=== PATIENT | male | born 1940 | race Caucasian/White ===

== ENCOUNTER 2016-12-07 06:18 | Inpatient (IN) ==
[2016-12-07] MEDS ORDERED: Lidocaine -MPF 1% 2 ML VIAL ID ONE (06:47)
[2016-12-07] MEDS ORDERED: Albuterol 2.5 MG/3 ML NEBULIZER IH ONE (06:47)
[2016-12-07] MEDS ORDERED: CeFAZolin Pre 2,000 MG/100 ML 2,000 MG/100 ML BAG IVPB ONE (06:47)
[2016-12-07] MEDS ORDERED: Vancomycin 1,500 MG in D5% in Water 250 ML IVPB ONE ×3 (06:47→18:30)
[2016-12-07] MEDS ORDERED: Albuterol 2.5 MG/3 ML NEBULIZER ONE (06:50)
[2016-12-07] MEDS ORDERED: Ringers Solution, Lactated 1,000 ML IVC SCH (07:00)
[2016-12-07] MEDS ORDERED: *HR* Phenylephrine 10 MG/ML VIAL ONE (07:14)
[2016-12-07] MEDS ORDERED: *HR* Propofol 200 MG/20 ML VIAL IVP ONE (07:14)
[2016-12-07] MEDS ORDERED: Lidocaine -MPF 2% 2 ML VIAL ONE (07:14)
[2016-12-07] MEDS ORDERED: *HR* FentaNYL (PF) 100 MCG/2 ML VIAL ONE (07:14)
[2016-12-07] MEDS ORDERED: Lidocaine -MPF 4% 5 ML AMPUL ONE (07:14)
[2016-12-07] MEDS ORDERED: *HR* Midazolam HCl 2 MG/2 ML VIAL ONE (07:14)
[2016-12-07] MEDS ORDERED: *HR* Remifentanil 1 MG VIAL IVP ONE ×2 (07:15→07:16)
--- NOTE | 2016-12-07 07:17 | Anesthesia Evaluation PreOp ---
Date of Encounter: 12/07/16 Time of Encounter: 07:15 - Past History Planned Operation: R-CEA Cardiac History: HTN (maintained on Lisinopril, Metoprolol, Nifedipine), Hyperlipidemia (maintained on Simvastatin) Pulmonary History: Smoker (<1ppd x 50), COPD MONITORING TECH History: Denies Any Significant HX, Other (Carotid STenosis) Other Medical History: Denies Any Significant HX Anesthesia History: No Prior Anesthetic Complications, Past Anesthesia (NO priorGA) Alcohol Use: heavy, recent Drug use: none Medications and Allergies Aspirin [Lo-Dose Aspirin EC] 81 mg PO DAILY 12/07/16 [History] Calcium Carbonate [Calcium] 600 mg PO DAILY 12/07/16 [History] Calcium Carbonate/Vitamin D3 [Calcium 600-Vit D3 800 Tab] 1 tab PO DAILY [History] Fish Oil/Dha/Epa [Fish Oil 1,200 mg Fish Oil] 1 cap PO DAILY 12/07/16 [History] Lisinopril/Hydrochlorothiazide [Zestoretic 20-12.5 mg Tablet] 1 tab PO DAILY [History] Lycopene 10 mg PO DAILY 12/07/16 [History] Metoprolol [Lopressor] 25 mg PO BID 12/07/16 [History] Multivitamin [One Daily Multivitamin] 1 each PO DAILY 12/07/16 [History] NIFEdipine [Nifedipine ER] 30 mg PO DAILY 12/07/16 [History] Potassium Gluconate 99 mg PO DAILY 12/07/16 [History] Saw [place] [Saw [place]] 160 mg PO DAILY 12/07/16 [History] Simvastatin [Zocor] 40 mg PO HS 12/07/16 [History] 3 Allergy/AdvReac Type Severity Reaction Status Date / Time No Known Allergies Allergy Verified 12/07/16 07:07 - Meds/Allergy Pre-op Review Medications Reviewed: Yes Allergies Reviewed: Yes Beta Blockers on Current Med List: Yes (Metoprolol) If Beta Blockers taken, Date/Time (Last Dose taken): 12/07/2016 @ 1928 Anesthesia Results - Labs Laboratory Tests 12/06/16 12/06/16 12/06/16 16:42 16:42 16:42 WBC 7.7 Hgb 14.9 Hct 42.9 Plt Count 236 PT 10.5 INR 1.0 APTT 29.3 Sodium 139 Potassium 3.6 Chloride 101 Carbon Dioxide 29 Creatinine 1.21 Est GFR (Non-Af Amer) 58 L Anesthesia Exam O2 Sat Height 1.73 m Height 1.73 m Height 1.73 m Weight 95.708 kg Weight 95.708 kg Weight 95.708 kg O2 Sat by Pulse Oximetry 96 O2 Sat by Pulse Oximetry 96 Vital Signs Temp Pulse Resp BP Pulse Ox 97.9 F 60 18 132/74 96 12/07/16 06:41 12/07/16 06:41 12/07/16 06:41 12/07/16 06:41 12/07/16 06:41 Height: 5'10" Weight: 211# NPO (# of Hours): MNOc Pain Scale Used: Numeric (1 - 10) - HEENT Pupil (Motor): Pupils equal, EOMI Mallampati: II Teeth: Edentulous Oral Opening: Greater than 3 - MONITORING TECH LOC: Oriented MONITORING TECH Motor: Normal RUE, Normal LUE, Normal RLE, Normal LLE, Normal Face MONITORING TECH Sensory: Normal: RUE, LUE, RLE, LLE, Face - Cardiac Rhythm: Regular Murmur: None JVD: No - Pulmonary Breath Sounds: bilateral Clear Respiratory Effort: Symmetrical Anesthesia Assess/Plan ASA Score: 3 (HTN, Chol, smoker, Carotid Stenosis) Modified Imbler Scale for Level of Consciousness: Cooperative, oriented, and tranquil Anesthetic Plan: General Autologous Blood: Yes Monitoring Plan: A-Line Recovery Plan: PACU Anes Supervising Prov Stmt: Pt seen/evaluate, R&B Discussed, questions answered and consent obtained., Jameel Swan MD
[2016-12-07] MEDS ORDERED: Protamine Sulfate 50 MG/5 ML VIAL IVP ONE (07:20)
[2016-12-07] MEDS ORDERED: Bupivacaine-MPF 0.25% 10 ML VIAL ONE (07:20)
[2016-12-07] MEDS ORDERED: Heparin 1,000 UNITS/500 mL NS 1,500 ML ONE (07:21)
[2016-12-07] MEDS ORDERED: *HR* Succinylcholine 200 MG/10 ML VIAL IVP ONE (07:25)
[2016-12-07] MEDS ORDERED: Heparin 1,000 UNITS/500 mL NS 500 ML ONE (07:27)
[2016-12-07] MEDS ORDERED: *HR* Labetalol 20 MG/4 ML SYRINGE IVP PRN ×2 (07:31→12:57)
[2016-12-07] MEDS ORDERED: *HR* Promethazine 25 MG/ML VIAL IVP PRN (07:31)
[2016-12-07] MEDS ORDERED: *HR* HYDROmorphone (PF) 1 MG/ML SYRINGE IVP PRN (07:31)
[2016-12-07] MEDS ORDERED: Acetaminophen IV 1,000 MG/100 ML INFUS..BTL IVPB ONE (07:31)
--- NOTE | 2016-12-07 07:32 | History & Physical Report ---
Date of Encounter: 12/07/16 Time of Encounter: 07:28 24 Hour HP Update - Instructions Instructions: If the History and Physical is less than 30 days old and was completed prior to A.M. admission and or procedure and has NOT been updated on calendar day of procedure please complete this update prior to performing procedure. - Update Patient reports changes in Medical Condition: No Changes in examination, assessment, or condition: No Changes in Medication: No Preop tests/diagnostics Reviewed: Yes Surgery Remains Indicated: Yes Consent for Planned Operative Procedure(s) Verified: Yes - Pre-Operative Checklist Preoperative Checklist Indicated: Yes Prophylactic Antibiotic Ordered: Yes (vancomycin due to MRSA risk.) Home Medications Include Beta Brandan: Yes Beta Brandan Taken Today (Day of Surgery): Yes Beta Brandan Taken Yesterday (Day Prior to Surgery): Yes Is VTE Prophylaxis Indicated?: Yes
[2016-12-07] MEDS ORDERED: *HR* Heparin 5,000 UNIT/ML VIAL ONE (09:40)
[2016-12-07] MEDS ORDERED: *HR* Metoprolol 5 MG/5 ML VIAL IVP ONE (10:40)
--- NOTE | 2016-12-07 11:11 | Operative Note ---
Date of procedure: 12/07/16 Pre-op diagnosis: 80-99% Right internal carotid artery stenosis Post-op diagnosis: same Procedure: Right carotid endarterectomy with hemashield patch angioplasty. Complications: None Anesthesia: PERFECTOA Surgeon: Ryan Burrell Estimated blood loss (cc): 100 Specimen: Right carotid plaque Condition: stable Disposition: PACU Procedure in Detail: indications: The patient is a 76 year old male with a history of hyperlipidemia and hypertension. He was found to have an 80-99% right internal carotid artery stenosis by carotid duplex. A right carotid endarterectomy was recommended to reduce his risk of stroke. Procedure: The patient was identified in the preoperative area. The risks, benefits, and alternatives of the procedure were discussed and all questions were answered. The patient was then taken to the operating room and placed in supine position on the operating table. After induction of general endotracheal anesthesia, the patient was cleaned and draped in normal sterile fashion. A longitudinal incision was made anterior to the right sternocleidomastoid muscle. Hemostasis was obtained via electrocautery. Through a process of blunt , sharp, and electrocautery dissection, the platysma was traversed. The jugular vein was identified. The facial vein was clamped, divided, tied off with a 2-0 silk suture ligature. The jugular vein was retracted, exposing the carotid bifurcation. The patient received 3000 units of heparin intravenously at this time. Proximal dissection of the common and external carotid arteries were performed circumferentially. Dissection of the internal carotid was performed circumferentially. Vessels loops were passed around the internal and external carotid and an umbilical tape was passed from the common carotid artery. The patient received additional 2000 units of heparin intravenously. Additional heparin was given throughout the case to maintain adequate anticoagulation. After waiting adequate time for the heparin to circulate, the vessels were occluded and a longitudinal arteriotomy was made into the common carotid artery extending into the internal carotid beyond the plaque. The internal carotid artery loop was released and brisk pulsatile retrograde flow was apparent. Therfore, no shunt was placed. A dental Jayess was used to perform a standard endarterectomy. Proximal and distal endpoints were inspected. No elevated flaps were noted. Additional heparin was given throughout the procedure to maintain adequate anticoagulation. A Hemashield patch was cut to fit the defect and sutured in place with running 6 -0 Prolene. Prior to completing the closure, each vessel was flushed and then reoccluded. Heparinized saline was infused into the lumen. The patch was completed. Flow was restored in the external carotid artery, followed the common carotid artery, lastly the internal carotid artery was opened. A low resistance arterialized signal was present within the internal carotid artery beyond the patch. Thrombin and Gelfoam were used to aid in hemostasis. Meticulous hemostasis was obtained throughout the wound with electrocautery. Platelet rich and platelet poor plasma were infused into the wounds. The sternocleidomastoid was reapproximated with interrupted 3-0 Vicryl. Platelet rich and platelet poor plasma were infused into the wound. A TLS drain was brought through a separate stab incision and sutured in place with 0 silk suture. The platysma was reapproximated with running 3-0 Vicryl. Local anesthetic was infused in the skin. A 3-0 Monocryl was used to reapproximate the skin. Sterile dressing was applied. The patient was extubated, taken to the recovery room in stable condition.
--- NOTE | 2016-12-07 11:40 | Anesthesia Evaluation Post Op ---
Date of Encounter: 12/07/16 Time of Encounter: 11:39 - Vital Signs Vital Signs: Vital Signs/O2 Sat, Most Current Temp Pulse Resp BP Pulse Ox 97.8 F 61 16 120/71 100 12/07/16 11:25 12/07/16 11:25 12/07/16 11:25 12/07/16 11:12/07/16 11:25 - Lungs Lungs: Clear Ascult./Percussion - Airway Airway: Non-obstructed - Cardiovascular Regular Rate - Mental Status Mental Status: Alert & Oriented, Answers Appropriately - Pain Pain Scale: 0 Pain Scale used: Numeric (1 - 10) - Nausea Vomiting Nausea Vomiting: Not Present - Hydration Hydration: Ice chips - Discharge PostOp Status: Transfer Patient to floor
[2016-12-07] MEDS ORDERED: Naloxone 0.4 MG/ML INJ IVP PRN (12:57)
[2016-12-07] MEDS ORDERED: Ondansetron 4 MG/2 ML VIAL IVP PRN (12:57)
[2016-12-07] MEDS ORDERED: *HR* HYDROcodone/Acet 5/325 mg TABLET PO PRN (12:57)
[2016-12-07] MEDS ORDERED: *HR* Morphine 2 MG/ML SYRINGE IVP PRN (12:57)
[2016-12-07] MEDS ORDERED: Acetaminophen 325 MG TABLET PO PRN (12:57)
[2016-12-07] MEDS ORDERED: *HR* OxyCODONE Immed Rel 5 MG TABLET PO PRN (12:57)
[2016-12-07] MEDS: *HR* Metoprolol 5 MG/5 ML VIAL IVP SCH ×2 (13:47→18:11)
[2016-12-07] MEDS ORDERED: ceFAZolin 2,000 MG in D5% in Water 100 ML IVPB SCH (14:30)
[2016-12-07] MEDS: ceFAZolin 2,000 MG in D5% in Water 100 ML IVPB SCH ×2 (14:43→21:40)
[2016-12-07] MEDS ORDERED: *HR* Heparin 5,000 UNIT/ML VIAL SQ SCH (18:00)
[2016-12-07] MEDS ORDERED: Vancomycin 0 MG in D5% in Water 250 ML IVPB ONE (18:30)
[2016-12-08] MEDS: *HR* Metoprolol 5 MG/5 ML VIAL IVP SCH ×2 (00:14→06:38)
[2016-12-08] MEDS ORDERED: *HR* Heparin 5,000 UNIT/ML VIAL SQ SCH (06:00)
--- NOTE | 2016-12-08 06:37 | Discharge Summary ---
Date of Encounter: 12/08/16 Time of Encounter: 11:50 - Discharge Diagnosis (1) Carotid stenosis, bilateral Priority: Primary Status: Chronic Comments: The patient is postoperative day #1 after a right carotid endarterectomy. He is alert and comfortable. He has no neurologic deficits. His incision is healing. He has no hematoma. He will be discharged today. (2) Essential hypertension Priority: Secondary Status: Chronic (3) Mixed hyperlipidemia Priority: Secondary Status: Chronic (4) Tobacco abuse Priority: Secondary Status: Chronic - Discharge Medications Prescriptions: HYDROcodone/Acet 5/325 mg [[place] 5-325 mg] 1 tab PO Q4H PRN #25 tab PRN Reason: postoperative pain Home Medications: Aspirin [Lo-Dose Aspirin EC] 81 mg PO DAILY 12/07/16 [History] Calcium Carbonate [Calcium] 600 mg PO DAILY 12/07/16 [History] Calcium Carbonate/Vitamin D3 [Calcium 600-Vit D3 800 Tab] 1 tab PO DAILY [History] Fish Oil/Dha/Epa [Fish Oil 1,200 mg Fish Oil] 1 cap PO DAILY 12/07/16 [History] Lisinopril/Hydrochlorothiazide [Zestoretic 20-12.5 mg Tablet] 1 tab PO DAILY [History] Lycopene 10 mg PO DAILY 12/07/16 [History] Metoprolol [Lopressor] 25 mg PO BID 12/07/16 [History] Multivitamin [One Daily Multivitamin] 1 each PO DAILY 12/07/16 [History] NIFEdipine [Nifedipine ER] 30 mg PO DAILY 12/07/16 [History] Potassium Gluconate 99 mg PO DAILY 12/07/16 [History] Saw [place] 160 mg PO DAILY 12/07/16 [History] Simvastatin [Zocor] 40 mg PO HS 12/07/16 [History] HYDROcodone/Acet 5/325 mg [[place] 5-325 mg] 1 tab PO Q4H PRN #25 tab 12/08/16 [Rx ] Allergies/Adverse Reactions: 3 Allergy/AdvReac Type Severity Reaction Status Date / Time No Known Allergies Allergy Verified 12/07/16 07:07 Procedures/tests Complete & Pending: Procedures Performed prior 72 hours Category Date Time Status ECG 12 lead ECG [ECG] Routine Y 12/07/16 07:39 Completed Date of admission: 12/07/16 11:34 Primary care physician: Kemi Marquis DO Procedure(s) Performed: Right carotid endarterectomy Discharging clinician: Ryan Burrell Anticipated date of discharge: 12/08/16 - Patient Status Disposition: Home, Self-Care Condition: Good Functional capacity at discharge: independent ambulation Overall status at discharge: patient is back to baseline - Discharge Instructions Instructions: Peripheral Vascular Disorders (DC), Surgical Site Infections (GEN ) Follow Up With: Ryan Burrell MD [Partnered Physician] - 01/22/17 11:00 am Neeru Manning CNP [Advanced Practice Nurse] - 12/14/16 1:45 pm Additional Instructions: May remove bandage and shower 12/09/16. Wash wound gently and pat to dry. No driving for [address] Burrell at [phone] with questions or concerns. - Diet and Activity Activity: increase activity as tolerated Diet: advance to your usual diet - Hospital Course Hospital course: Mr. Marrero is a 76 year old male with a history of hypertension and hyperlipidemia. He underwent a right carotid endarterectomy on 12/07/16. He tolerated the procedure well. He will be discharged today without complications. Time spent discussing smoking cessation with patient: 3 to 10 minutes - Time Spent with Patient Total time spent providing and/or coordinating discharge services: Exam Vital Signs, Last 4 Hours Temp Pulse Resp BP Pulse Ox 12/08/16 03:48 98.1 F 67 19 116/65 93 General: Present: Conversant, No Apparent Distress HEENT: Present: Trachea midline, Pupils equal Neck: Present: Other (incision clean, dry and intact without erythema or drainage, no hematoma). Absent: Tracheal deviation Cardiac: Present: Reg Rate and Rhythm Lungs: Present: Normal Breath Sounds Neuro: Present: Alert and responsive, No focal deficits noted, Motor nerves grossly intact, Sensory nerves grossly intact Vascular: Present: Normal capillary refill. Absent: Edema Skin: Present: No rashes noted on visualized skin - VTE Documentation of Mechanical Device: Intermittent pneumatic compression device
[2016-12-08] MEDS ORDERED: CALCIUM CARBONATE PO SCH (09:00)
[2016-12-08] MEDS ORDERED: NIFEdipine XL (24 HR) 30 MG TAB.ER.24 PO SCH (09:00)
[2016-12-08] MEDS ORDERED: Aspirin Enteric Coated 81 MG Tablet PO SCH (09:00)
[2016-12-08] MEDS ORDERED: Lisinopril-HCTZ 20-12.5mg TABLET PO SCH (09:00)
[2016-12-08] MEDS ORDERED: (Potassium Gluconate [Potassium Gluconate] 99 MG) PO SCH (09:00)
[2016-12-08] MEDS ORDERED: VITAMIN D3 PO SCH (09:00)
[2016-12-08] MEDS ORDERED: Multivit/Ca/Min/Fe/FA 1 TAB TABLET PO SCH (09:00)
[2016-12-08 10:55] VITALS: BP 122/58
--- NOTE | 2016-12-11 20:49 | Electrocardiograph Report ---
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
== END 2016-12-08 13:32 | disposition home or self-care (01) | DRG 39 ==
LOC: SAMDAY 06:18 → 2NNU 11:34
PROVIDERS: ADMIT Surgery; ATTEND Surgery

== ENCOUNTER 2020-05-09 11:01 | Inpatient (IN) ==
[2020-05-09] MEDS ORDERED: *HR* FentaNYL (PF) 100 MCG/2 ML VIAL IVP ONE (11:31)
[2020-05-09 11:58] LABS: Hematocrit 42.1 % (37.5-50.1); Hemoglobin 14.1 g/dL (12.9-16.9); Mean Corpuscular HGB Conc 33.5 g/dL (31.6-35.5); Mean Corpuscular Hemoglobin 31.1 pg (28.0-33.3); Mean Corpuscular Volume 92.7 fL (83.0-100.0); Mean Platelet Volume 9.4 fL (9.4-12.4); Platelet Count 233 K/mcL (140-400); Red Blood Count 4.54 M/mcL (4.19-5.50); Red Cell Distribution Width 14.5 % (11.5-14.5); White Blood Count 16.2 K/mcL (4.3-11.1)
[2020-05-09 12:03] LABS: INR 1.3; Prothrombin Time 14.6 Seconds (9.4-12.1)
[2020-05-09 12:06] LABS: Activated Partial Thrombo Time 25.3 Seconds (26.0-36.0)
[2020-05-09 12:15] LABS: Lymphocytes # 1.3 K/mcL (0.6-4.6); Monocytes # 0.3 K/mcL (0.0-1.3); Neutrophils # 14.6 K/mcL (1.6-8.9); Platelet Estimate Normal (Normal)
[2020-05-09] MEDS ORDERED: 0.9 % Sodium Chloride 1,000 ML IV ONE (12:15)
[2020-05-09 12:20] LABS: Albumin 3.8 g/dL (3.5-5.7); Albumin/Globulin Ratio 1.4 (1.1-2.2); Bilirubin,Total 2.8 mg/dL (0.3-1.0); Calcium 9.8 mg/dL (8.6-10.3); Globulin 2.7 g/dL (2.4-3.5); Potassium 4.2 mEq/L (3.5-5.1); Total Protein 6.5 g/dL (6.4-8.9)
[2020-05-09] MEDS ORDERED: Piperacillin/Tazobactam 3.375 GM in 0.9 % Sodium Chloride Mini Bag 100 ML IVPB ONE (12:29)
[2020-05-09] MEDS ORDERED: *HR* Enoxaparin 100 MG/ML SYRINGE SQ STA (12:59)
[2020-05-09] MEDS ORDERED: *HR* OxyCODONE Immed Rel 5 MG TABLET PO PRN (13:42)
[2020-05-09] MEDS ORDERED: Mag Hydrox/Al Hydrox/Simeth 30 ML UDC PO PRN (13:42)
[2020-05-09] MEDS ORDERED: Naloxone 0.4 MG/ML INJ IVP PRN (13:42)
[2020-05-09] MEDS ORDERED: Ondansetron ODT 4 MG TAB.RAPDIS SL PRN (13:42)
[2020-05-09] MEDS: 0.9 % Sodium Chloride 1,000 ML IVC SCH (15:23)
[2020-05-09 15:47] LABS: Bilirubin,Urine Negative (Negative); Blood,Urine Moderate (Negative); Clarity,Urine Clear (Clear); Color,Urine Yellow (Yellow); Glucose,Urine (UA) Normal (Normal); Ketones,Urine Negative (Negative); Leukocyte Esterase,Urine Negative (Negative); Nitrite,Urine Negative (Negative); Protein,Urine 30 mg/dL (Neg-Trace); Specific Gravity,Urine > 1.030 (1.010-1.025); Squamous Epithelial Cell,Urine Few per hpf (None-Few); Urobilinogen,Urine Normal (Normal)
[2020-05-09] MEDS: Piperacillin/Tazobactam 3.375 GM in 0.9 % Sodium Chloride Mini Bag 100 ML IVPB SCH (20:28)
[2020-05-09] MEDS: Acetaminophen 325 MG TABLET PO PRN (23:58)
[2020-05-10] MEDS: 0.9 % Sodium Chloride 1,000 ML IVC SCH (01:42)
[2020-05-10] MEDS ORDERED: Melatonin 3 MG TABLET PO ONE (01:48)
[2020-05-10 02:38] LABS: INR 1.4; Prothrombin Time 16.3 Seconds (9.4-12.1)
[2020-05-10 02:39] LABS: Basophils % 0.1 %; Hematocrit 36.1 % (37.5-50.1); Immature Granulocytes % 0.7 % (0-4); Lymphocytes # 1.1 K/mcL (0.6-4.6); Lymphocytes % 7.9 %; Mean Corpuscular HGB Conc 33.8 g/dL (31.6-35.5); Mean Corpuscular Hemoglobin 31.4 pg (28.0-33.3); Mean Corpuscular Volume 92.8 fL (83.0-100.0); Mean Platelet Volume 9.8 fL (9.4-12.4); Monocytes # 0.5 K/mcL (0.0-1.3); Monocytes % 3.8 %; Platelet Count 202 K/mcL (140-400); Red Blood Count 3.89 M/mcL (4.19-5.50); Red Cell Distribution Width 14.6 % (11.5-14.5); Segmented Neutrophils % 87.5 %; White Blood Count 13.7 K/mcL (4.3-11.1)
[2020-05-10 02:44] LABS: Hemoglobin 12.2 g/dL (12.9-16.9)
[2020-05-10 02:50] LABS: Calcium 8.5 mg/dL (8.6-10.3); Potassium 3.3 mEq/L (3.5-5.1)
[2020-05-10] MEDS: Acetaminophen 325 MG TABLET PO PRN ×2 (05:55→17:37)
[2020-05-10] MEDS: Piperacillin/Tazobactam 3.375 GM in 0.9 % Sodium Chloride Mini Bag 100 ML IVPB SCH ×3 (05:56→20:18)
[2020-05-10] MEDS ORDERED: *HR* Enoxaparin 100 MG/ML SYRINGE SQ SCH (06:00)
[2020-05-10 08:37] LABS: Magnesium 1.5 mg/dL (1.6-2.6); Phosphorous 2.1 mg/dL (2.7-4.5)
[2020-05-10] MEDS: Aspirin Enteric Coated 81 MG Tablet PO SCH (08:38)
[2020-05-10] MEDS: NIFEdipine XL (24 HR) 30 MG TAB.ER.24 PO SCH (08:38)
[2020-05-10] MEDS ORDERED: Potassium Phosphate 44 MEQ in 0.9 % Sodium Chloride 250 ML IVPB ONE (13:12)
[2020-05-10] MEDS ORDERED: Perflutren Lipid Microsphere 1.3 ML in 0.9 % Sodium Chloride 8.7 ML IVP PRN (13:16)
[2020-05-10] MEDS: Apixaban 5 MG TABLET PO SCH (20:18)
[2020-05-11] MEDS ORDERED: Melatonin 3 MG TABLET PO ONE (00:17)
[2020-05-11 04:31] LABS: Basophils % 0.2 %; Hematocrit 36.3 % (37.5-50.1); Hemoglobin 12.3 g/dL (12.9-16.9); Immature Granulocytes % 2.5 % (0-4); Lymphocytes # 0.9 K/mcL (0.6-4.6); Lymphocytes % 5.9 %; Mean Corpuscular HGB Conc 33.9 g/dL (31.6-35.5); Mean Corpuscular Hemoglobin 30.9 pg (28.0-33.3); Mean Corpuscular Volume 91.2 fL (83.0-100.0); Mean Platelet Volume 9.7 fL (9.4-12.4); Monocytes # 0.5 K/mcL (0.0-1.3); Monocytes % 3.4 %; Neutrophils # 13.4 K/mcL (1.6-8.9); Platelet Count 201 K/mcL (140-400); Red Blood Count 3.98 M/mcL (4.19-5.50); Red Cell Distribution Width 14.6 % (11.5-14.5); White Blood Count 15.2 K/mcL (4.3-11.1)
[2020-05-11 04:56] LABS: BUN/Creatinine Ratio 21 (6-26); Blood Urea Nitrogen 26 mg/dL (8-23); Calcium 8.2 mg/dL (8.6-10.3); Carbon Dioxide 24 mEq/L (23-29); Chloride 103 mEq/L (98-107); Glucose 141 mg/dL (70-105); Magnesium 2.3 mg/dL (1.6-2.6); Osmolality,Calculated 289 (280-300); Phosphorous 1.8 mg/dL (2.7-4.5); Potassium 3.1 mEq/L (3.5-5.1); Sodium 136 mEq/L (136-145); eGFR For African Americans > 60 (> 60); eGFR For Non-African Americans 57 (> 60)
[2020-05-11] MEDS: Piperacillin/Tazobactam 3.375 GM in 0.9 % Sodium Chloride Mini Bag 100 ML IVPB SCH ×3 (05:23→21:20)
[2020-05-11] MEDS ORDERED: VITAMIN D3 PO SCH (09:00)
[2020-05-11] MEDS ORDERED: [UNRECOGNIZED DRUG - OTHER] PO SCH (09:00)
[2020-05-11] MEDS ORDERED: CALCIUM CARBONATE PO SCH (09:00)
[2020-05-11] MEDS: Apixaban 5 MG TABLET PO SCH ×2 (09:14→21:20)
[2020-05-11] MEDS: NIFEdipine XL (24 HR) 30 MG TAB.ER.24 PO SCH (09:14)
[2020-05-11] MEDS: Aspirin Enteric Coated 81 MG Tablet PO SCH (09:14)
[2020-05-11] MEDS: Cholecalciferol (D-3) 1,000 UNIT (25MCG) TABLET PO SCH (09:14)
[2020-05-11 12:54] LABS: Adenovirus Not Detected (Not Detect); Bordetella Pertussis Not Detected (Not Detect); Chlamydophila pneumoniae Not Detected (Not Detect); Coronavirus 229E Not Detected (Not Detect); Coronavirus HKU1 Not Detected (Not Detect); Coronavirus NL63 Not Detected (Not Detect); Coronavirus OC43 Not Detected (Not Detect); Human Metapneumovirus Not Detected (Not Detect); Human Rhinovirus/Enterovirus Not Detected (Not Detect); Influenza A Subtype 2009 H1 Not Detected (Not Detect); Influenza B Not Detected (Not Detect); Mycoplasma pneumoniae Not Detected (Not Detect); Parainfluenza Virus 1 Not Detected (Not Detect); Parainfluenza Virus 2 Not Detected (Not Detect); Parainfluenza Virus 3 Not Detected (Not Detect); Parainfluenza Virus 4 Not Detected (Not Detect); Respiratory Syncytial Virus Not Detected (Not Detect); SARS-CoV-2 Not Detected (Not Detect)
[2020-05-11] MEDS ORDERED: Isovue-370 500 ML BOTTLE IVP ONE (17:56)
[2020-05-11] MEDS ORDERED: 0.9 % Sodium Chloride 1,000 ML IVC SCH ×2 (18:00→18:14)
[2020-05-11] MEDS: methylPREDNISolone 125 MG/2 ML VIAL IVP SCH (18:04)
[2020-05-11 18:14] LABS: ABG Base Excess 1 mEq/L (-2 to 3); ABG HCO3 25 mEq/L (21-27); ABG Oxygen Saturation 94 % (95-98); ABG PCO2 37 mmHg (35-45); ABG PH 7.44 pH Units (7.32-7.45); ABG PO2 67 mmHg (85-104); ABG TCO2 26 mEq/L (20-26)
[2020-05-11] MEDS: Ipratropium/Albuterol Neb 3 ML IH SCH ×2 (19:45→23:33)
[2020-05-11] MEDS: Acetaminophen 325 MG TABLET PO PRN (21:19)
[2020-05-11] MEDS: Melatonin 3 MG TABLET PO PRN (22:01)
[2020-05-11] MEDS ORDERED: 0.9 % Sodium Chloride 1,000 ML ONE (23:33)
[2020-05-12 01:50] LABS: Basophils % 0.2 %; Eosinophils % 0.2 %; Hematocrit 35.9 % (37.5-50.1); Immature Granulocytes % 0.6 % (0-4); Lymphocytes # 0.6 K/mcL (0.6-4.6); Lymphocytes % 3.9 %; Mean Corpuscular HGB Conc 33.4 g/dL (31.6-35.5); Mean Corpuscular Hemoglobin 30.9 pg (28.0-33.3); Mean Corpuscular Volume 92.5 fL (83.0-100.0); Mean Platelet Volume 9.7 fL (9.4-12.4); Monocytes # 0.3 K/mcL (0.0-1.3); Neutrophils # 15.2 K/mcL (1.6-8.9); Platelet Count 232 K/mcL (140-400); Red Blood Count 3.88 M/mcL (4.19-5.50); Red Cell Distribution Width 14.7 % (11.5-14.5); Segmented Neutrophils % 93.1 %; White Blood Count 16.4 K/mcL (4.3-11.1)
[2020-05-12 02:02] LABS: BUN/Creatinine Ratio 24 (6-26); Blood Urea Nitrogen 27 mg/dL (8-23); Carbon Dioxide 24 mEq/L (23-29); Chloride 102 mEq/L (98-107); Glucose 188 mg/dL (70-105); Magnesium 2.6 mg/dL (1.6-2.6); Osmolality,Calculated 290 (280-300); Potassium 3.7 mEq/L (3.5-5.1); Sodium 135 mEq/L (136-145); eGFR For African Americans > 60 (> 60); eGFR For Non-African Americans > 60 (> 60)
[2020-05-12] MEDS: Ipratropium/Albuterol Neb 3 ML IH SCH ×7 (03:44→23:25)
[2020-05-12] MEDS: Piperacillin/Tazobactam 3.375 GM in 0.9 % Sodium Chloride Mini Bag 100 ML IVPB SCH ×3 (06:22→20:03)
[2020-05-12] MEDS: methylPREDNISolone 125 MG/2 ML VIAL IVP SCH (06:23)
[2020-05-12] MEDS: Apixaban 5 MG TABLET PO SCH ×2 (07:31→20:03)
[2020-05-12] MEDS: Aspirin Enteric Coated 81 MG Tablet PO SCH (07:31)
[2020-05-12] MEDS: Cholecalciferol (D-3) 1,000 UNIT (25MCG) TABLET PO SCH (07:31)
[2020-05-12] MEDS: NIFEdipine XL (24 HR) 30 MG TAB.ER.24 PO SCH (07:31)
[2020-05-12] MEDS: Furosemide 20 MG/2 ML VIAL IVP SCH ×2 (08:37→20:02)
[2020-05-12] MEDS ORDERED: GuaiFENesin/Dextromethorphan TABLET PO PRN (13:33)
[2020-05-12] MEDS: Doxycycline 100 MG in 0.9 % Sodium Chloride Mini Bag 100 ML IVPB SCH (17:15)
[2020-05-12] MEDS ORDERED: *HR* Metoprolol 5 MG/5 ML VIAL IVP ONE ×2 (19:28→22:49)
[2020-05-12] MEDS: Melatonin 3 MG TABLET PO PRN (20:44)
[2020-05-13] MEDS: Ipratropium/Albuterol Neb 3 ML IH SCH ×6 (04:05→23:28)
[2020-05-13] MEDS: Doxycycline 100 MG in 0.9 % Sodium Chloride Mini Bag 100 ML IVPB SCH ×2 (05:10→18:17)
[2020-05-13 05:13] LABS: Basophils % 0.1 %; Eosinophils % 0.1 %; Hematocrit 33.8 % (37.5-50.1); Hemoglobin 11.5 g/dL (12.9-16.9); Immature Granulocytes % 1.5 % (0-4); Lymphocytes % 6.1 %; Mean Corpuscular Hemoglobin 31.3 pg (28.0-33.3); Mean Corpuscular Volume 92.1 fL (83.0-100.0); Mean Platelet Volume 9.7 fL (9.4-12.4); Monocytes # 0.7 K/mcL (0.0-1.3); Monocytes % 4.6 %; Platelet Count 288 K/mcL (140-400); Red Blood Count 3.67 M/mcL (4.19-5.50); Red Cell Distribution Width 14.8 % (11.5-14.5); Segmented Neutrophils % 87.6 %
[2020-05-13 05:23] LABS: Calcium 7.8 mg/dL (8.6-10.3); Magnesium 2.5 mg/dL (1.6-2.6); Phosphorous 1.8 mg/dL (2.7-4.5)
[2020-05-13 05:24] LABS: C-Reactive Protein 146 mg/L (Less than 10); Creatine Kinase 149 Units/L (30-223)
[2020-05-13] MEDS: Piperacillin/Tazobactam 3.375 GM in 0.9 % Sodium Chloride Mini Bag 100 ML IVPB SCH ×3 (06:47→21:08)
[2020-05-13] MEDS: Furosemide 20 MG/2 ML VIAL IVP SCH (08:56)
[2020-05-13] MEDS: Cholecalciferol (D-3) 1,000 UNIT (25MCG) TABLET PO SCH (08:57)
[2020-05-13] MEDS: Apixaban 5 MG TABLET PO SCH ×2 (08:57→21:08)
[2020-05-13] MEDS: predniSONE 20 MG TABLET PO SCH (08:57)
[2020-05-13] MEDS: NIFEdipine XL (24 HR) 30 MG TAB.ER.24 PO SCH (08:57)
[2020-05-13] MEDS: Aspirin Enteric Coated 81 MG Tablet PO SCH (08:57)
[2020-05-13] MEDS: Melatonin 3 MG TABLET PO PRN (21:08)
[2020-05-14] MEDS: Ipratropium/Albuterol Neb 3 ML IH SCH ×4 (03:34→15:22)
[2020-05-14] MEDS: Doxycycline 100 MG in 0.9 % Sodium Chloride Mini Bag 100 ML IVPB SCH (05:15)
[2020-05-14] MEDS: Piperacillin/Tazobactam 3.375 GM in 0.9 % Sodium Chloride Mini Bag 100 ML IVPB SCH (05:15)
[2020-05-14 06:24] LABS: Basophils % 0.3 %; Eosinophils % 0.2 %; Hematocrit 33.7 % (37.5-50.1); Hemoglobin 11.4 g/dL (12.9-16.9); Immature Granulocytes % 5.1 % (0-4); Mean Corpuscular HGB Conc 33.8 g/dL (31.6-35.5); Mean Corpuscular Hemoglobin 30.9 pg (28.0-33.3); Mean Corpuscular Volume 91.3 fL (83.0-100.0); Mean Platelet Volume 9.4 fL (9.4-12.4); Monocytes # 0.6 K/mcL (0.0-1.3); Neutrophils # 7.6 K/mcL (1.6-8.9); Platelet Count 351 K/mcL (140-400); Red Blood Count 3.69 M/mcL (4.19-5.50); Red Cell Distribution Width 14.9 % (11.5-14.5); Segmented Neutrophils % 78.4 %; White Blood Count 9.7 K/mcL (4.3-11.1)
[2020-05-14 06:39] LABS: BUN/Creatinine Ratio 28 (6-26); Blood Urea Nitrogen 32 mg/dL (8-23); Calcium 7.9 mg/dL (8.6-10.3); Carbon Dioxide 25 mEq/L (23-29); Chloride 108 mEq/L (98-107); Glucose 112 mg/dL (70-105); Magnesium 2.5 mg/dL (1.6-2.6); Osmolality,Calculated 302 (280-300); Phosphorous 1.7 mg/dL (2.7-4.5); Potassium 3.2 mEq/L (3.5-5.1); Sodium 142 mEq/L (136-145); eGFR For African Americans > 60 (> 60); eGFR For Non-African Americans > 60 (> 60)
[2020-05-14] MEDS: predniSONE 20 MG TABLET PO SCH (09:24)
[2020-05-14] MEDS: NIFEdipine XL (24 HR) 30 MG TAB.ER.24 PO SCH (09:25)
[2020-05-14] MEDS: Cholecalciferol (D-3) 1,000 UNIT (25MCG) TABLET PO SCH (09:25)
[2020-05-14] MEDS: Apixaban 5 MG TABLET PO SCH (09:25)
[2020-05-14] MEDS: Aspirin Enteric Coated 81 MG Tablet PO SCH (09:25)
[2020-05-14 11:29] VITALS: BP 141/55
== END 2020-05-14 16:36 | disposition home or self-care (01) | DRG 871 ==
LOC: EMEROOARM 11:01 → 3ANU 11:01 → SUATTDRO 13:30 → 3ANU 14:21 → 2NNU 05-11 18:21 → 3ANU 05-12 18:12
PROVIDERS: ADMIT Family Medicine; ATTEND Internal Medicine

== ENCOUNTER 2020-05-21 16:00 | Observation (INO) ==
[2020-05-21] MEDS ORDERED: Naloxone 0.4 MG/ML INJ IVP PRN (19:29)
[2020-05-21] MEDS ORDERED: Ondansetron 4 MG/2 ML VIAL IVP PRN (19:29)
[2020-05-21 20:10] LABS: Basophils # 0.1 K/mcL (0.0-0.2); Basophils % 0.4 %; Eosinophils # 0.2 K/mcL (0.0-0.6); Eosinophils % 1.3 %; Hematocrit 36.9 % (37.5-50.1); Hemoglobin 12.2 g/dL (12.9-16.9); Immature Granulocytes % 1.4 % (0-4); Mean Corpuscular HGB Conc 33.1 g/dL (31.6-35.5); Mean Corpuscular Hemoglobin 30.6 pg (28.0-33.3); Mean Corpuscular Volume 92.5 fL (83.0-100.0); Mean Platelet Volume 8.9 fL (9.4-12.4); Monocytes # 0.8 K/mcL (0.0-1.3); Monocytes % 6.6 %; Neutrophils # 8.4 K/mcL (1.6-8.9); Platelet Count 399 K/mcL (140-400); Red Blood Count 3.99 M/mcL (4.19-5.50); Red Cell Distribution Width 14.5 % (11.5-14.5); Segmented Neutrophils % 73.3 %; White Blood Count 11.5 K/mcL (4.3-11.1)
[2020-05-21 20:18] LABS: INR 1.2; Prothrombin Time 13.6 Seconds (9.4-12.1)
[2020-05-21 20:20] LABS: Activated Partial Thrombo Time 30.5 Seconds (26.0-36.0)
[2020-05-21 20:30] LABS: Alanine Aminotransferase 19 Units/L (7-52); Albumin 3.1 g/dL (3.5-5.7); Alkaline Phosphatase 47 Units/L (34-104); Aspartate Amino Transferase 15 Units/L (13-39); BUN/Creatinine Ratio 15 (6-26); Bilirubin,Total 0.8 mg/dL (0.3-1.0); Blood Urea Nitrogen 19 mg/dL (8-23); Calcium 8.9 mg/dL (8.6-10.3); Carbon Dioxide 28 mEq/L (23-29); Chloride 102 mEq/L (98-107); Globulin 3.2 g/dL (2.4-3.5); Glucose 98 mg/dL (70-105); Osmolality,Calculated 282 (280-300); Phosphorous 2.9 mg/dL (2.7-4.5); Potassium 4.3 mEq/L (3.5-5.1); Sodium 135 mEq/L (136-145); Total Protein 6.3 g/dL (6.4-8.9); eGFR For African Americans > 60 (> 60); eGFR For Non-African Americans 53 (> 60)
[2020-05-21] MEDS ORDERED: Isovue-370 500 ML BOTTLE IVP ONE (20:47)
[2020-05-21] MEDS ORDERED: Ringers Solution, Lactated 500 ML IVC SCH (21:00)
[2020-05-21] MEDS: Apixaban 5 MG TABLET PO SCH (22:19)
[2020-05-21] MEDS: *HR* HYDROcodone/Acet 5/325 mg TABLET PO PRN (22:19)
[2020-05-21] MEDS: Vancomycin 1,500 MG/265 ML IV.SOLN IVPB SCH (22:20)
[2020-05-22] MEDS: Piperacillin/Tazobactam 3.375 GM in 0.9 % Sodium Chloride Mini Bag 100 ML IVPB SCH ×3 (00:21→17:50)
[2020-05-22] MEDS: *HR* HYDROcodone/Acet 5/325 mg TABLET PO PRN ×2 (05:09→11:22)
[2020-05-22] MEDS ORDERED: NIFEdipine XL (24 HR) 30 MG TAB.ER.24 PO SCH (09:00)
[2020-05-22] MEDS: Apixaban 5 MG TABLET PO SCH ×2 (10:05→21:32)
[2020-05-22] MEDS: Aspirin Enteric Coated 81 MG Tablet PO SCH (10:05)
[2020-05-22] MEDS: *HR* OxyCODONE Immed Rel 5 MG TABLET PO PRN (17:49)
[2020-05-22] MEDS: Vancomycin 1,500 MG/265 ML IV.SOLN IVPB SCH (21:32)
[2020-05-23] MEDS: Piperacillin/Tazobactam 3.375 GM in 0.9 % Sodium Chloride Mini Bag 100 ML IVPB SCH ×4 (00:34→23:47)
[2020-05-23 05:20] LABS: Basophils % 0.3 %; Eosinophils # 0.1 K/mcL (0.0-0.6); Eosinophils % 0.8 %; Immature Granulocytes % 0.9 % (0-4); Lymphocytes # 1.7 K/mcL (0.6-4.6); Lymphocytes % 16.1 %; Mean Corpuscular HGB Conc 32.4 g/dL (31.6-35.5); Mean Corpuscular Hemoglobin 30.9 pg (28.0-33.3); Mean Corpuscular Volume 95.4 fL (83.0-100.0); Monocytes # 0.6 K/mcL (0.0-1.3); Platelet Count 384 K/mcL (140-400); Red Blood Count 3.88 M/mcL (4.19-5.50); Red Cell Distribution Width 14.4 % (11.5-14.5); Segmented Neutrophils % 75.9 %; White Blood Count 10.5 K/mcL (4.3-11.1)
[2020-05-23 05:40] LABS: % Iron Saturation 10 % (20-55); BUN/Creatinine Ratio 13 (6-26); Blood Urea Nitrogen 14 mg/dL (8-23); Calcium 8.6 mg/dL (8.6-10.3); Carbon Dioxide 25 mEq/L (23-29); Chloride 106 mEq/L (98-107); Glucose 116 mg/dL (70-105); Iron 20 mcg/dL (65-175); Magnesium 1.9 mg/dL (1.6-2.6); Osmolality,Calculated 285 (280-300); Potassium 4.1 mEq/L (3.5-5.1); Sodium 137 mEq/L (136-145); Transferrin 146 mg/dL (203-362); eGFR For African Americans > 60 (> 60); eGFR For Non-African Americans > 60 (> 60)
[2020-05-23 05:58] LABS: Ferritin 315 ng/mL (20-250)
[2020-05-23 06:03] LABS: Folate 18.7 ng/mL (3.0-16.0)
[2020-05-23] MEDS: Cholecalciferol (D-3) 1,000 UNIT (25MCG) TABLET PO SCH (08:24)
[2020-05-23] MEDS: Apixaban 5 MG TABLET PO SCH ×2 (08:24→21:33)
[2020-05-23] MEDS: NIFEdipine XL (24 HR) 30 MG TAB.ER.24 PO SCH (08:24)
[2020-05-23] MEDS: Aspirin Enteric Coated 81 MG Tablet PO SCH (08:25)
[2020-05-23] MEDS: Multivit/Ca/Min/Fe/FA 1 TAB TABLET PO SCH (08:25)
[2020-05-23] MEDS: *HR* OxyCODONE Immed Rel 5 MG TABLET PO PRN ×3 (08:25→21:34)
[2020-05-23] MEDS ORDERED: Vancomycin 1,750 MG/517.5 ML IV.SOLN IVPB SCH (22:00)
[2020-05-24] MEDS ORDERED: Ketorolac 15 MG/ML VIAL IVP ONE (00:30)
[2020-05-24 03:50] LABS: Basophils # 0.1 K/mcL (0.0-0.2); Basophils % 0.5 %; Eosinophils # 0.2 K/mcL (0.0-0.6); Eosinophils % 1.3 %; Hematocrit 34.1 % (37.5-50.1); Hemoglobin 11.2 g/dL (12.9-16.9); Immature Granulocytes % 0.6 % (0-4); Lymphocytes # 1.9 K/mcL (0.6-4.6); Lymphocytes % 16.3 %; Mean Corpuscular HGB Conc 32.8 g/dL (31.6-35.5); Mean Corpuscular Hemoglobin 30.1 pg (28.0-33.3); Mean Corpuscular Volume 91.7 fL (83.0-100.0); Mean Platelet Volume 8.8 fL (9.4-12.4); Monocytes # 0.7 K/mcL (0.0-1.3); Neutrophils # 8.6 K/mcL (1.6-8.9); Platelet Count 400 K/mcL (140-400); Red Blood Count 3.72 M/mcL (4.19-5.50); Red Cell Distribution Width 14.2 % (11.5-14.5); Segmented Neutrophils % 75.3 %; White Blood Count 11.4 K/mcL (4.3-11.1)
[2020-05-24 04:08] LABS: BUN/Creatinine Ratio 14 (6-26); Blood Urea Nitrogen 16 mg/dL (8-23); Calcium 8.4 mg/dL (8.6-10.3); Carbon Dioxide 24 mEq/L (23-29); Chloride 107 mEq/L (98-107); Glucose 115 mg/dL (70-105); Magnesium 1.9 mg/dL (1.6-2.6); Osmolality,Calculated 286 (280-300); Potassium 4.1 mEq/L (3.5-5.1); Sodium 137 mEq/L (136-145); eGFR For African Americans > 60 (> 60); eGFR For Non-African Americans 59 (> 60)
[2020-05-24] MEDS: Piperacillin/Tazobactam 3.375 GM in 0.9 % Sodium Chloride Mini Bag 100 ML IVPB SCH (07:22)
[2020-05-24] MEDS: NIFEdipine XL (24 HR) 30 MG TAB.ER.24 PO SCH (07:23)
[2020-05-24] MEDS: Cholecalciferol (D-3) 1,000 UNIT (25MCG) TABLET PO SCH (07:23)
[2020-05-24] MEDS: Apixaban 5 MG TABLET PO SCH (07:23)
[2020-05-24] MEDS: Aspirin Enteric Coated 81 MG Tablet PO SCH (07:23)
[2020-05-24] MEDS: Multivit/Ca/Min/Fe/FA 1 TAB TABLET PO SCH (07:23)
[2020-05-24 07:54] VITALS: BP 147/71
[2020-05-24] MEDS: *HR* OxyCODONE Immed Rel 5 MG TABLET PO PRN (16:58)
== END 2020-05-24 17:06 | disposition home health service (06) ==
LOC: 3ANU → SUATTDRO 18:31
PROVIDERS: ADMIT Internal Medicine; ATTEND Pharmacist